=== PATIENT | male | born 1965 | race Two or more races ===

== ENCOUNTER 2016-10-17 21:02 | Emergency (ER) | payer SELFPAY ==
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
[2016-10-17 23:14] VITALS: BP 165/81
[2016-10-17] MEDS ORDERED: LIDOCAINE 1%/EPI 1:100,000 20 ML VIAL. INJ ONE (23:45)
[2016-10-18] MEDS ORDERED: AMOX1TAB61 PO (00:34)
[2016-10-18] MEDS ORDERED: HYDR-971 PO (00:34)
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
== END 2016-10-18 01:07 | disposition home or self-care (01) ==
LOC: ER 21:02
DX: S02.31XB Fracture of orbital floor, right side, initial encounter for open fracture (principal); S02.40CB Maxillary fracture, right side, initial encounter for open fracture; S01.81XA Laceration without foreign body of other part of head, initial encounter; Y04.0XXA Assault by unarmed brawl or fight, initial encounter; Y93.89 Activity, other specified; Y92.89 Other specified places as the place of occurrence of the external cause; Y99.8 Other external cause status
CPT/HCPCS: 12013; 70450; 70486; 99284-25